=== PATIENT | male | born 1955 | race Caucasian/White ===

== ENCOUNTER 2017-01-23 08:32 | Emergency (ER) | payer BC ==
[2017-01-23 08:42] VITALS: RESP 16; TEMP 97.8
[2017-01-23] MEDS ORDERED: PSEUDOEPHEDRINE 30 MG PO ONE (08:44)
--- NOTE | 2017-01-23 08:49 | PDOC ---
Eye Complaint HPI - General Chief Complaint: Eye Problem / Injury Stated Complaint: EYE SWELLING/ "ALLERGIC REACTION" Date Seen by Provider: 01/23/17 Time Seen by Provider: 08:44 Source: POSITIVE: Patient Exam Limitations: POSITIVE: No limitations Nurse's Notes Reviewed & Considered: Yes - History of Present Illness Initial Comments: Patient comes in today with chief complaint of watery itchy eyes. Since Tuesday of last week patient has had watery itchy eyes and 2 days ago began to develop swelling under his left eye worse this morning. He denies any postnasal drainage, no sore throat, no tendinitis, mild rhinorrhea. He further denies any shortness of breath, chest pain, cough, nausea vomiting diarrhea, no hematuria or dysuria. No headaches. He had similar symptoms in the spring of last year was drawn eyedrops and antibiotic and got over things quickly. He is seeking similar treatment Have you received a tetanus shot in the past 10 years?: Yes Location: Both Eyes Timing: REPORTS: Constant Duration: >1 week Severity: Moderate Quality: REPORTS: Itching Recent Injury: REPORTS: No Associated Symptoms: REPORTS: Itching, Redness, Eyelid Swelling Context: REPORTS: Other (Dust exposure and wind exposure.) Location at Time of Onset: REPORTS: Work Modifying Factors: REPORTS: Nothing Relieves Similar Symptoms Previously: Yes Recent Care Received: REPORTS: Denies Any Prior Injuries Related to Current Complaint?: No - Patient Home Medications Home Medications: Home Medications NK [No Home Medications Reported] 01/23/17 - Patient Allergies Allergies/Adverse Reactions: Allergies Allergy/AdvReac Type Severity Reaction Status Date / Time No Known Allergies Allergy Verified 01/23/17 08:35 Past Medical History - heen HEENT History: Denies History Cardiovascular History: Denies History Respiratory History: Denies History Gastrointestinal History: Denies History Genitourinary History: Denies History Endocrine History: Denies History Musculoskeletal History: Denies History Prosthesis or Implant: No Neurological History: Denies History Blood Disorders: Denies History Psychiatric History: Denies History History of Sexually Transmitted Diseases: No Male Reproductive History: Denies History In Past Year Been Physically Harmed or Verbally Threatened: No History of MDRO: No History of Other Communicable Diseases: No Tobacco Use: Former Smoker Alcohol Use: None Substance Use Type: None Previous Surgical History: No Significant Family History: No pertinent family hx ROS - Limitations ROS Limitations: No Limitations Constitution: REPORTS: Denies Symptoms Cardiovascular: REPORTS: Denies Cardiac Symptoms Respiratory: REPORTS: Denies Resp Symptoms Neurological: REPORTS: Denies Neuro Symptoms Gastrointestinal: REPORTS: Denies GI Symptoms Endocrine: REPORTS: Denies Symptoms Musculoskeletal: REPORTS: Denies MS Symptoms Genitourinary: REPORTS: Denies Symptoms Eyes: REPORTS: Red Eyes, Itching Eyes, Eye Drainage ENT: REPORTS: Congestion, Nasal Drainage Skin: REPORTS: Denies Skin Symptoms Lympathic: REPORTS: Denies Lympathic Symptoms Immunologic: POSITIVE: Denies Symptoms Psychiatric: POSITIVE: Denies Psych Symptoms Eye Complaint Physical Exam - General Appearance General Appearance: POSITIVE: Alert, Cooperative, No Acute Distress, No Evidence of Trauma - Visual Acuity / Pupil Size Pupil Size: 4 mm: Bilateral - HEENT Head / Face: POSITIVE: Atraumatic, Normal Inspection, Swelling (Lower eyelids right greater than left) Eyes: POSITIVE: Inspection Normal, PERRL, EOM's Intact, No Nystagmus, Sclera Normal, Conjunctivae (red), Edema (Lower eyelids) Ears: POSITIVE: Ears Normal Inspection, Auricle Normal Nose: POSITIVE: Inspection Normal, No Apparent Trauma, Nares Normal, No CSF Leak Oropharynx: POSITIVE: External Inspection Nml, Pharynx Inspect. Nml, Airway Intact, Voice Normal, Moist Mucous Membranes, No Oral Injury, Lips Normal, Gums Normal, No Drooling, No Thrush Dental: POSITIVE: No Dental Injury - Skin Skin: POSITIVE: Normal Color, No Skin Rash - Neck / Back Neck/Back: POSITIVE: Normal Inspection, Non-Tender, Painless ROM - Respiratory / Cardiovascular Respiratory / CVS: POSITIVE: No Respiratory Distress, Breath Sounds Normal, Regular Rate/Rhythm, Heart Sounds Normal - Abdomen Abdomen: Soft: (All Quadrants), Normal Bowel Sounds: (All Quadrants), Denies Tenderness: (All Quadrants) - Neurological / Psychological Neuro / Psych: POSITIVE: Oriented to Person, Oriented to Place, Oriented to Time Procedures - Laceration/Wound Repair Did patient have a laceration repair: No Eye Complaint Progress - Patient's Progress Status: POSITIVE: Improved MDM / ED Course: Patient was evaluated. He received oral Sudafed. He receives prescription for TobraDex ophthalmic drops, instructions for Sudafed or Zyrtec as needed. Assessment: Seasonal allergies, conjunctivitis. Plan: Prescription for TobraDex, instructions for Sudafed or Zyrtec, follow-up with primary care physician as needed. - Consult Counseled: POSITIVE: Patient, RE: DX, RE: Need for F/U Patient Care Time - Estimated PCT Patient Care Time (In Minutes): 10 Vital Signs - Recent Vital Signs Vital Signs: Vital Signs (Last 8 hours) Temp Pulse Resp BP Pulse Ox 01/23/17 08:36 97.8 F 102 H 16 158/95 92 Discharge Clinical Impression: Conjunctivitis, Seasonal allergies Discharge Disposition: Discharged to Home Condition: Good Patient Instructions Given at Discharge: Conjunctivitis (ED), Allergies (ED)
== END 2017-01-23 09:05 | disposition home or self-care (01) ==
LOC: ER 08:32
DX: H10.33 Unspecified acute conjunctivitis, bilateral (principal); J30.2 Other seasonal allergic rhinitis
CPT/HCPCS: 99282